=== PATIENT | male | born 1960 | race Asian ===

== ENCOUNTER 2025-06-01 21:15 | Inpatient (IN) | payer BC, MEDICARE ==
[~2025-06-01] VITALS: Ht 167.6 cm; Wt 81.0 kg
[2025-06-02] MEDS ORDERED: 0.9% SODIUM CHLORIDE 10 ML SYRINGE IVP PRN (01:00)
[2025-06-02] MEDS: KETOROLAC TROMETHAMINE 30 MG/ML VIAL IVP ONE (01:29)
[2025-06-02 01:56] LABS: CALCIUM, TOTAL 8.7 mg/dL (8.8-10.5); CREATININE 1.12 mg/dL (0.60-1.30); GLOMERULAR FILTR. RATE CALC > 60 mL/min (>60); GLUCOSE,RANDOM 160 mg/dL (70-110); SODIUM SERUM 139 mmol/L (136-145); UREA NITROGEN, BLOOD 26 mg/dL (7-18)
[2025-06-02 01:58] LABS: APPEARANCE,URINE CLEAR (CLEAR); GLUCOSE, URINE (UA) NEGATIVE (NEGATIVE); LEUKOCYTE ESTERASE ,URINE NEGATIVE (NEGATIVE); NITRATE,URINE NEGATIVE (NEGATIVE); OCCULT BLOOD,URINE NEGATIVE (NEGATIVE); SPECIFIC GRAVITIY, URINE 1.020 (1.003-1.030)
[2025-06-02 02:00] LABS: ASPARTATE AMINOTRANSFERASE 15 U/L (15-37); C-REACTIVE PROTEIN QUANT 1.29 mg/dL (0.00-0.30); CREATINE KINASE, TOTAL ONLY 172 U/L (39-308); TOTAL PROTEIN, SERUM 5.9 g/dL (6.4-8.2)
[2025-06-02 02:05] LABS: TROPONIN I-HIGH SENSITIVITY 51 ng/L (<76)
[2025-06-02 02:12] LABS: PLATELET COUNT (AUTO) 249 K/uL (150-450); RED BLOOD CELL COUNT(AUTO) 4.47 MIL/uL (4.50-5.90); RED CELL DISTRIBUTION WIDTH 14.9 % (11.5-14.5); WHITE BLOOD COUNT (AUTO) 15.9 K/uL (4.5-11.0)
[2025-06-02 02:20] LABS: LACTIC ACID 3.9 mmol/L (0.4-2.0)
[2025-06-02] MEDS: PIPERACILLIN SODIUM/TAZOBACTAM 4.5 GM in DEXTROSE 5%-WATER 100 ML IV ONE (02:43)
[2025-06-02] MEDS: SODIUM CHLORIDE 0.9% 1,000 ML IV ONE ×3 (02:50→05:19)
[2025-06-02 09:38] VITALS: BP 149/78; PULSE 76; RESP 19; TEMP 98.1; O2SAT 97
[2025-06-02 15:40] VITALS: BP 163/82; PULSE 92; RESP 17; TEMP 98.1; O2SAT 98
[2025-06-02] MEDS ORDERED: MORPHINE SULFATE 4 MG/ML SYRINGE IVP PRN (15:45)
[2025-06-02] MEDS ORDERED: DEXTROSE 50%-WATER 25 GM/50 ML SYRINGE IVP PRN (15:45)
[2025-06-02] MEDS ORDERED: ALBUTEROL SULFATE 2.5 MG/0.5 ML NEB SOLUTION NEB PRN (15:45)
[2025-06-02] MEDS ORDERED: ONDANSETRON HCL 4 MG/2 ML VIAL IVP PRN (15:45)
[2025-06-02] MEDS ORDERED: BISACODYL 10 MG RECTAL RECTAL SUPPOSITORY PR PRN (15:45)
[2025-06-02] MEDS ORDERED: ACETAMINOPHEN 325 MG TABLET PO PRN (15:45)
[2025-06-02] MEDS ORDERED: IPRATROPIUM BROMIDE 0.5 MG/2.5 ML NEB SOLUTION NEB PRN (15:45)
[2025-06-02] MEDS ORDERED: ZOLPIDEM TARTRATE 5 MG TABLET PO PRN (15:45)
[2025-06-02] MEDS ORDERED: HYDROCODONE/ACETAMINOPHEN 5-325 MG TABLET PO PRN (15:45)
[2025-06-02] MEDS ORDERED: MAGNESIUM HYDROXIDE SUSPENSION 30 ML UDCUP PO PRN (15:45)
[2025-06-02] MEDS ORDERED: METO25 PO (15:54)
[2025-06-02] MEDS ORDERED: METF-81 PO (15:54)
[2025-06-02] MEDS ORDERED: LISI5TAB21 PO (15:54)
[2025-06-02] MEDS ORDERED: SIMV-43 PO (15:54)
[2025-06-02] MEDS ORDERED: PRED5TAB2 PO (15:57)
[2025-06-02] MEDS ORDERED: MULT-1203 PO (16:03)
[2025-06-02] MEDS ORDERED: OMEG-287 PO (16:03)
[2025-06-02] MEDS: HEPARIN SODIUM,PORCINE 5,000 UNITS/ML VIAL SQ SCH (16:12)
[2025-06-02] MEDS: MetFORMIN HCL 500 MG ER TABLET PO SCH (16:12)
[2025-06-02] MEDS: DOXYCYCLINE HYCLATE 100 MG in DEXTROSE 5%-WATER 100 ML IV SCH (17:12)
[2025-06-02 17:20] VITALS: BP 147/63
[2025-06-02] MEDS: INSULIN LISPRO 100 UNITS/ML SQ PRN (17:58)
[2025-06-02 18:30] LABS: GLUCOMETER DEV NAME(LOC) 5S.1E; GLUCOSE,POINT OF CARE 218 MG/DL (70-110)
[2025-06-02] MEDS: METOPROLOL TARTRATE 25 MG TABLET PO SCH (20:08)
[2025-06-02] MEDS: SIMVASTATIN 20 MG TABLET PO SCH (20:08)
[2025-06-02 20:12] VITALS: BP 150/77; PULSE 80; RESP 18; TEMP 97.5; O2SAT 95
[2025-06-03] VITALS: BP 110/53; PULSE 69; RESP 18; TEMP 97.5; O2SAT 98
[2025-06-03 06:20] VITALS: BP 115/62; PULSE 65; RESP 18; TEMP 97.5; O2SAT 98
[2025-06-03 06:21] LABS: PLATELET COUNT (AUTO) 237 K/uL (150-450); RED BLOOD CELL COUNT(AUTO) 4.47 MIL/uL (4.50-5.90); RED CELL DISTRIBUTION WIDTH 15.0 % (11.5-14.5); WHITE BLOOD COUNT (AUTO) 14.6 K/uL (4.5-11.0)
[2025-06-03 06:27] LABS: CALCIUM, TOTAL 8.5 mg/dL (8.8-10.5); CREATININE 0.89 mg/dL (0.60-1.30); GLOMERULAR FILTR. RATE CALC > 60 mL/min (>60); GLUCOSE,RANDOM 204 mg/dL (70-110); SODIUM SERUM 140 mmol/L (136-145); UREA NITROGEN, BLOOD 22 mg/dL (7-18)
[2025-06-03 07:51] LABS: GLUCOMETER DEV NAME(LOC) 5S.1E; GLUCOSE,POINT OF CARE 172 MG/DL (70-110)
[2025-06-03 07:51] LABS: GLUCOMETER DEV NAME(LOC) 5S.1E; GLUCOSE,POINT OF CARE 185 MG/DL (70-110)
[2025-06-03 08:07] VITALS: BP 132/87; PULSE 75; RESP 18; TEMP 97.9; O2SAT 98
[2025-06-03] MEDS: PANTOPRAZOLE SODIUM 40 MG DR TABLET PO SCH (08:15)
[2025-06-03 11:41] VITALS: BP 130/69; PULSE 75; RESP 18; TEMP 97.9; O2SAT 95
[2025-06-03] MEDS: CETIRIZINE HCL 10 MG TABLET PO SCH (11:45)
[2025-06-03 16:00] VITALS: PULSE 80; RESP 18
[2025-06-03 20:31] VITALS: BP 137/76; PULSE 66; RESP 18; TEMP 98.5; O2SAT 95
[2025-06-03 22:06] LABS: GLUCOMETER DEV NAME(LOC) 5S.1E; GLUCOSE,POINT OF CARE 212 MG/DL (70-110)
[2025-06-03 22:06] LABS: GLUCOMETER DEV NAME(LOC) 5S.1E; GLUCOSE,POINT OF CARE 230 MG/DL (70-110)
[2025-06-04 00:20] VITALS: BP 115/77; PULSE 74; RESP 18; TEMP 97.5; O2SAT 97
[2025-06-04 04:25] VITALS: BP 137/80; PULSE 87; RESP 18; TEMP 97.7; O2SAT 100
[2025-06-04 08:00] VITALS: BP 146/76; PULSE 82; RESP 19; TEMP 97.7; O2SAT 98
[2025-06-04 08:36] LABS: PLATELET COUNT (AUTO) 272 K/uL (150-450); RED BLOOD CELL COUNT(AUTO) 4.31 MIL/uL (4.50-5.90); RED CELL DISTRIBUTION WIDTH 15.1 % (11.5-14.5); WHITE BLOOD COUNT (AUTO) 19.1 K/uL (4.5-11.0)
[2025-06-04 09:02] LABS: CALCIUM, TOTAL 8.9 mg/dL (8.8-10.5); CREATININE 1.05 mg/dL (0.60-1.30); GLOMERULAR FILTR. RATE CALC > 60 mL/min (>60); GLUCOSE,RANDOM 167 mg/dL (70-110); SODIUM SERUM 140 mmol/L (136-145); UREA NITROGEN, BLOOD 20 mg/dL (7-18)
[2025-06-04 11:07] VITALS: BP 136/74; PULSE 69; RESP 18; TEMP 98.2; O2SAT 99
[2025-06-04 12:31] LABS: GLUCOMETER DEV NAME(LOC) 5S.1E; GLUCOSE,POINT OF CARE 191 MG/DL (70-110)
[2025-06-07 20:06] LABS: GLUCOSE,POINT OF CARE 217 MG/DL (70-110)
== END 2025-06-04 13:40 | disposition home or self-care (01) | DRG 916 ==
LOC: EMS 21:15 → EDH 06-02 07:08 → 5N 06-02 09:20
PROVIDERS: ADMIT Internal Medicine; ATTEND Internal Medicine
DX: T88.6XXA Anaphylactic reaction due to adverse effect of correct drug or medicament properly administered, initial encounter (principal); D72.829 Elevated white blood cell count, unspecified; E11.9 Type 2 diabetes mellitus without complications; I10 Essential (primary) hypertension; E78.5 Hyperlipidemia, unspecified; M06.9 Rheumatoid arthritis, unspecified; I25.10 Atherosclerotic heart disease of native coronary artery without angina pectoris; K21.9 Gastro-esophageal reflux disease without esophagitis; T37.2X5A Adverse effect of antimalarials and drugs acting on other blood protozoa, initial encounter; L40.9 Psoriasis, unspecified; I25.2 Old myocardial infarction; Z79.52 Long term (current) use of systemic steroids; Z95.5 Presence of coronary angioplasty implant and graft; Y92.89 Other specified places as the place of occurrence of the external cause; Z88.3 Allergy status to other anti-infective agents; Z79.899 Other long term (current) drug therapy
CPT/HCPCS: 80048; 80076; 81003; 82550; 82962; 83605; 84145; 84484; 85025; 85651; 86140; 87040; 99285; J1200; J1644; J1885; J2543; J2919; J3490; J7030; J7060